=== PATIENT | female | born 1935 | race Caucasian/White ===

== ENCOUNTER 2020-08-21 11:47 | Outpatient (NON) | payer OTHER, SELFPAY ==
[2020-08-21 14:37] LABS: Anion Gap 8 mmol/L (8-16); Blood Urea Nitrogen 22 mg/dL (7-17); Calcium 11.9 mg/dL (8.4-10.2); Carbon Dioxide 29 mmol/L (22-30); Chloride 100 mmol/L (98-107); Estimated Glomerular Filt Rate > 60; Glucose 212 mg/dL (65-105); Potassium 4.4 mmol/L (3.4-5.0); Sodium 137 mmol/L (137-145)
[2020-08-21 14:54] LABS: Basophils Percent Auto 0.4 % (0.2-1.2); Eosinophils Absolute Auto 0.2 K/mm3 (0-0.3); Eosinophils Percent Auto 2.2 % (0-4.4); Hematocrit 42.8 % (37.0-47.0); Hemoglobin 12.9 g/dL (12.0-15.0); Immature Granulocyte Absolute 0.03 K/mm3 (0.00-0.031); Immature Granulocyte Percent A 0.4 % (0-0.5); Lymphocytes Absolute Auto 1.09 K/mm3 (0.9-3.2); Lymphocytes Percent Auto 15.1 % (18.3-44.2); Mean Corpuscular HGB Conc 30.1 g/dl (32-36); Mean Corpuscular Hemoglobin 28.4 pg (26-34); Mean Corpuscular Volume 94.1 fl (80-100); Mean Platelet Volume 8.9 fl (7.4-10.4); Monocytes Absolute Auto 0.4 K/mm3 (0.1-0.6); Monocytes Percent Auto 5.9 % (2.6-8.5); Neutrophils Absolute Auto 5.5 K/mm3 (1.3-6.7); Platelet Count Result 201 k/mm3 (150-375); Red Blood Count 4.55 M/mm3 (4.2-5.4); Red Cell Distribution Width 14.7 % (11.5-14.5); White Blood Count 7.2 K/mm3 (4.5-10.0)
== END 2020-08-21 11:48 ==
PROVIDERS: Visit Provider Internal Medicine
DX: E83.52 Hypercalcemia (principal); D64.9 Anemia, unspecified
CPT/HCPCS: 80048; 82728; 85025

== ENCOUNTER → 2020-12-20 15:14 | Outpatient (REF) | payer OTHER, SELFPAY | LOC: ANHLAB 15:14 | PROVIDERS: Visit Provider Nurse Practitioner | DX: D49.2 Neoplasm of unspecified behavior of bone, soft tissue, and skin (principal) | CPT/HCPCS: 88305; 88313; 88342 ==

== ENCOUNTER 2021-04-14 14:21 | Emergency (ER) | payer OTHER, SELFPAY ==
[2021-04-14 14:35] VITALS: BP 115/66; PULSE 68; RESP 12; TEMP 38.4; O2SAT 96
--- NOTE | 2021-04-14 14:39 | ED.FEMALEGU ---
HPI - Female Genitourinary General Chief complaint: Urogenital-Female Stated complaint: POS UTI/abdominal pain/nausea/back pain Time Seen by Provider: 04/14/21 14:50 Source: patient and RN notes reviewed Mode of arrival: ambulatory Limitations: no limitations History of Present Illness HPI Narrative: 85-year-old female presents with 5-day history of abdominal pain, back pain, diaphoresis, fever, dark urine, dysuria, fatigue, general weakness. Her daughter reports she lives in assisted living where they took a urine sample several days ago, however they have not seen results yet. She denies nausea, vomiting, constipation, diarrhea. Denies confusion MD elicited complaint: UTI Related Data Home Medications Medication Instructions Recorded Confirmed albuterol sulfate INHALATION 12/20/20 apixaban 5 mg tablet 5 mg PO BID 12/20/20 aspirin 81 mg tablet,delayed 81 mg PO DAILY 12/20/20 release fluticasone furoate 200 1 inh INHALATION DAILY 12/20/20 mcg-vilanterol 25 mcg/dose inhalation powder hydralazine 50 mg tablet 50 mg PO TID 12/20/20 lisinopril 40 mg tablet 40 mg PO DAILY 12/20/20 metoprolol succinate 50 mg 50 mg PO DAILY 12/20/20 tablet,extended release 24 hr simvastatin 20 mg tablet 20 mg PO DAILY 12/20/20 timolol 0.25 % eye drops 1 drp EACH EYE Q12H 12/20/20 tiotropium bromide 2.5 2 puff INHALATION DAILY 12/20/20 mcg/actuation mist for inhalation Breo Ellipta 04/14/21 Eliquis 04/14/21 Allergies Allergy/AdvReac Type Severity Reaction Status Date / Time aspirin Allergy Unknown unknown Verified 12/20/20 14:48 codeine Allergy Unknown unknown Verified 12/20/20 14:47 Tetanus Vaccines and Toxoid Allergy Unknown unknown Verified 12/20/20 14:47 Review of Systems Review of Systems: Narrative: CONSTITUTIONAL: Reports fatigue, general weakness, malaise, chills, sweats, or fever. EYES: Denies visual changes, redness, or discharge. ENT: Denies rhinorrhea, congestion, sinus pain, otalgia or sore throat. CARDIOVASCULAR: Denies chest pain, palpitations, or edema. RESPIRATORY: Denies cough or dyspnea. GASTROINTESTINAL: Reports lower abdominal pain. Denies nausea, vomiting, diarrhea, bloody, or mucous stools. GENITOURINARY: Reports dysuria, dark smelling urine. SKIN: Denies rash or itching. MUSCULOSKELETAL: Reports back pain. Denies joint pain, or myalgia. PSYCHIATRIC: Denies confusion All systems reviewed & are unremarkable except as noted in HPI and below PMFSH Surgical History Surgical History (Updated 12/20/20 @ 14:54 by Latricia Limon) History of cholecystectomy History of hysterectomy History of parathyroidectomy Hx of appendectomy Family History Family History (Updated 12/20/20 @ 14:54 by Latricia Limon) Daughter Breast cancer Social History Social History (Updated 12/20/20 @ 14:54 by Latricia Limon) Smoking status: Never smoker Alcohol intake: never Comments At time of signature, agree with nursing past medical, surgical, social and family history. There is no relevant family history pertinent to the presenting complaint Exam Narrative: Exam Narrative: GENERAL: Well-appearing, well-nourished, and in no acute distress. HEAD: Normocephalic. EYES: PERRLA, conjunctivae clear. NECK: Supple. No lymphadenopathy CHEST: Clear to auscultation. No respiratory distress. HEART: Regular rate and rhythm. ABDOMEN: Soft, nontender upon palpation, nondistended, normal active bowel sounds, no palpable or pulsatile masses, no guarding. No CVA tenderness SKIN: Warm, dry, no rash. NEURO: Alert and oriented x3. PSYCH: Normal mood and affect Course Course Emergency Course: Discussed with patient's daughter limited diagnostic capability express care, discussed need for transfer to emergency department based on patient's symptoms, age, medical history. Daughter is agreeable, however reports she prefers to go to [place] and does not prefer to be transferred, she will proceed to the emerg
--- NOTE | 2021-04-14 15:11 | PC.NURSE ---
Unable to obtain UA as patient missed the hat and then could not void again.
== END 2021-04-14 15:03 | disposition home or self-care (01) ==
PROVIDERS: Emergency Provider Nurse Practitioner; PCP Internal Medicine
DX: R30.0 Dysuria (principal); M54.9 Dorsalgia, unspecified; R53.83 Other fatigue; R53.1 Weakness; R61 Generalized hyperhidrosis; Z79.82 Long term (current) use of aspirin; E78.00 Pure hypercholesterolemia, unspecified; I10 Essential (primary) hypertension; E11.9 Type 2 diabetes mellitus without complications
CPT/HCPCS: 99212; G0463